=== PATIENT | female | born 1975 ===

== ENCOUNTER 2025-02-14 11:36 | Emergency (ER) | payer BC, SELFPAY ==
[2025-02-14 11:38] VITALS: BP 127/79
[2025-02-14 11:55] LABS: % Basophils 0.5 % (0-2); % Eosinophils 0.7 % (0-6); % Immature Granulocytes 0.2 % (0-0.5); % Lymphocytes 34.3 % (20.5-51.1); % Monocytes 7.8 % (1.7-9.3); % Neutrophils 56.5 % (42.2-75.2); Absolute Lymphocytes 2.1 10^3/uL (1.2-3.4); Absolute Monocytes 0.5 10^3/uL (0.1-0.6); Absolute Neutrophils 3.5 10^3/uL (1.4-6.5); Hematocrit 27.9 % (37.0-47.0); Hemoglobin 9.5 g/dL (12.0-16.0); Mean Corp Hgb Conc. 34.1 g/dL (33.0-37.0); Mean Corpuscular Hgb 28.4 pg (27.0-31.0); Mean Corpuscular Volume 83.5 fL (81.0-99.0); Mean Platelet Volume 9.2 fL (7.4-10.4); Nucleated Red Blood Cells % 0 %; Platelet Count 396 10^3/uL (130-400); Red Blood Cell Count 3.34 10^6/uL (4.20-5.40); Red Cell Dist. Width 12.1 % (11.5-14.5); White Blood Cell Count 6.1 10^3/uL (4.8-10.8)
[2025-02-14 12:13] LABS: ALT (SGPT) 13 U/L (0-35); AST (SGOT) 18 U/L (14-36); Albumin 4.3 g/dl (3.5-5.0); Alkaline Phosphatase 51 U/L (38-126); Blood Urea Nitrogen 10 mg/dl (7-17); Calcium 9.2 mg/dl (8.4-10.2); Carbon Dioxide 24 mmol/L (22-30); Chloride 106 mmol/L (98-107); Glucose 99 mg/dl (70-99); Potassium 4.1 mmol/L (3.5-5.1); Sodium 139 mmol/L (135-145); Total Bilirubin 0.3 mg/dl (0.2-1.3); eGFR > 60.00
[2025-02-14 12:30] VITALS: BP 103/69; BP 125/80; BP 129/83; PULSE 69; PULSE 76; PULSE 91
--- NOTE | 2025-02-14 12:45 | ED.GENMED ---
History of Present Illness
General
Chief Complaint: Blood Pressure Problem
Source: patient
Exam Limitations: none
Time Seen by Provider: 02/14/25 12:13
Nursing documentation reviewed up to this point in time: agreed with except (she is not here for blood pressure problem, rather, abnormal vaginal bleeding. )
History of Present Illness
History of Present Illness:
49 yo female with hx Lyme's, anemia. States she's perimenopausal and her hormones have been 'all over the place.' She has had vaginal bleeding for past 2 months, past 2 days has had increasing bleeding, now with clots and mild abdominal cramping.
Had a near syncopal episode one week ago and checked her BP
She had a f/u appt with her Lyme doctor on 01/27 who started her on Progesterone 100 mg, increased to 200 mg with some slowing of the bleeding so she decreased it back to 100 mg with increasing bleeding so she took 400 mg two nights ago and none
since. Had bleeding with clots today.
Past History
Past History
ED Past Medical History: Other (Lyme disease)
ED Past Surgical History: None
Social History
Tobacco: Non-smoker
Alcohol: None
Personal:
Living: with family
Employment: Employed (works from home for [employer])
Review of Systems
Review of Systems
Allergies reviewed?: Yes
All Other Systems: ROS reviewed and negative except as documented in HPI and ROS
Constitutional: Reports fatigue; Denies fever
Respiratory: Denies trouble breathing
Cardiac: Denies chest pain, diaphoresis, palpitations or syncope
ABD/GI: Denies nausea, vomiting or diarrhea
: Reports bleeding; Denies dysuria, frequency, difficulty voiding or urgency
Neurological: Reports dizzy; Denies weakness or numbness
Phy Exam
Physical Exam
Physical Exam:
GENERAL: No acute distress. A&Ox3.
CONSTITUTIONAL: Afebrile.
EYES: clear, conjunctivae normal
ENMT: moist mucus membranes
RESPIRATORY: Regular respirations, nonlabored, lungs clear.
CARDIOVASCULAR: Regular rate and rhythm, no murmurs, no rubs.
GI: Soft, mild tenderness lower abdomen, normal BS
: has menstrual cup in so no visible bleeding at this time
MUSCULOSKELETAL: Moves with ease. Well perfused.
SKIN: Warm, dry, pink
PSYCH: Normal mood and affect. Well kept, interactive and appropriate
NEUROLOGIC: Awake, alert and oriented. No focal neurological deficits
Course
Orders/Labs/Results
Orders:
Orders
02/14/25 11:49
Complete Blood Count/With Diff Urgent
Comprehensive Metabolic Panel Urgent
HCG, Serum Qualitative Screen Urgent
Comment: ADD ON
02/14/25 12:13
Orthostatic VS- Treatment ONCE
02/14/25 12:41
US Pelvis W Transvag Combined Urgent
Comment:
Reason For Exam: bleeding past two months, clots past 2 days
02/14/25 13:38
Add On- LAB Urgent
Tests Added?: Beta HCG qualitative
02/14/25 16:33
Tranexamic Acid [Cyklokapron] 1,300 mg PO NOW STA
Abnormal Lab Results
02/14/25
11:49
RBC 3.34 L 10^6/uL
(4.20-5.40)
Hgb 9.5 L g/dL
(12.0-16.0)
Hct 27.9 L %
(37.0-47.0)
02/14/25 11:49
02/14/25 11:49
Vital Signs
Initial and Last Documented VS:
Initial Vital Signs
Temp Pulse Resp BP Pulse Ox
98.0 F 74 18 127/79 100
02/14/25 11:38 02/14/25 11:38 02/14/25 11:38 02/14/25 11:38 02/14/25 11:38
Last Documented Vital Signs
Temp Pulse Resp BP Pulse Ox
98.0 F 71 16 135/78 97
02/14/25 11:38 02/14/25 14:02 02/14/25 14:02 02/14/25 14:02 02/14/25 14:02
MDM/Problems Addressed
Differential Diagnosis Includes:
hormonal imbalance, fibroid, polyps, CA
MDM/Problems Addressed:
49 yo female with hx Lyme's, anemia. States she's perimenopausal and her hormones have been 'all over the place.' She has had vaginal bleeding for past 2 months, past 2 days has had increasing bleeding, now with clots and mild abdominal cramping.
Had a near syncopal episode one week ago at home sitting at computer and checked her BP 93/60, no further episodes of near syncope
She had a f/u appt with her Lyme doctor on 01/27 who started her on Progesterone 100 mg, increased to 200 mg with some slowing of the bleeding so she decreased it back to 100 mg with increasing bleeding so she took 400 mg two nights ago and none
since. Had bleeding with clots today.
12:15 p.m.
CBC: Hgb 9.5 otherwise normal
CMP normal
Orthostatics negative.
Pt had lab results from [facility] on 04/2024 and Hgb was 8.6 then. Has had no recent labs, has not had US.
Pt has seen [facility] in past
4:20 p.m.
US radiology result read: IMPRESSION:
Simple left ovarian cysts.
Myomatous uterus. One is submucosal.
Consulted Dr. Mancia [employer] who agrees with tranexamic acid as long as patient has no risk factors for DVT/PE. She only took the progesterone for 5 days, the last dose was 2 days ago and then DC'd so no significant risk. dr. Rios agrees.
One dose given here.
Rx sent to her pharmacy
ED Attending Note
-
Portions of this chart may have been created with voice recognition software.� Occasional wrong word or��sound alike� substitutions may have occurred due to the inherent limitations of voice recognition software.
Discharge Plan
Departure
Referrals:
Susu Almaraz MD [Family Provider] -
Interventions
Interventions:
*Risk Screen - Suicide Last Done: 02/14/25 11:38
*General Assessment Last Done: 02/14/25 11:38
*Neglect/Abuse Screening Last Done: 02/14/25 11:38
*ED- Fall Risk Assessment Last Done: 02/14/25 11:58
*ED COVID-19 Vaccine History Last Done: 02/14/25 11:58
ED- Pulmonary Assessment Last Done: 02/14/25 11:58
ED- Neurological Assessment Last Done: 02/14/25 11:58
ED- Cardiac Assessment Last Done: 02/14/25 11:58
Discharge Date and Time
Print Language: WELSH
[2025-02-14 14:02] VITALS: BP 135/78
[2025-02-14 15:27] LABS: HCG, Serum Qualitative Screen Negative
[2025-02-14] MEDS: CYKLOKAPRON 1300 MG PO (17:02)
[2025-02-14 17:06] VITALS: BP 117/84
== END 2025-02-14 17:07 | disposition home or self-care (01) ==
LOC: EMR 11:36
PROVIDERS: Student in an Organized Health Care Education/Training Program; EMERGENCY PHYSICIAN Student in an Organized Health Care Education/Training Program; FAMILY PHYSICIAN Physical Medicine & Rehabilitation
DX: N93.9 Abnormal uterine and vaginal bleeding, unspecified (principal); R42 Dizziness and giddiness; R10.9 Unspecified abdominal pain; R53.1 Weakness; R53.83 Other fatigue; N83.202 Unspecified ovarian cyst, left side; D25.9 Leiomyoma of uterus, unspecified; E78.5 Hyperlipidemia, unspecified
CPT/HCPCS: 99284; 76830; 76856; 80053; 84703; 85025

== ENCOUNTER → 2025-09-06 12:49 | Outpatient (REF) | payer BC, SELFPAY | LOC: HWRAD 12:49 | PROVIDERS: ATTENDING PHYSICIAN Obstetrics & Gynecology | DX: D25.0 Submucous leiomyoma of uterus (principal) | CPT/HCPCS: 76830; 76856 ==